=== PATIENT | male | born 1960 | race Caucasian/White ===

== ENCOUNTER 2019-11-01 13:27 | Outpatient (CLI) | payer OTHER, SELFPAY ==
--- NOTE | 2019-11-01 13:48 | ECG_ITS ---
Measurements Intervals [place] Rate: 80 P: 46 VA: 172 QRS: 23 QRSD: 94 T: 53 QT: 386 QTc: 447 Interpretive Statements SINUS RHYTHM NORMAL ECG Electronically Signed On 11-01-2019 14:38:43 LINER REROLL TENDER by Jose Lua D.O.
[2019-11-01 13:57] LABS: Blood Urea Nitrogen 14 mg/dL (9-20); Calcium 9.3 mg/dL (8.4-10.2); Carbon Dioxide 26 mmol/L (22-30); Chloride 99 mmol/L (98-107); Estimated Glomerular Filt Rate > 60; Glucose 101 mg/dL (75-110); Sodium 137 mmol/L (137-145)
== END 2019-11-01 13:28 | disposition home or self-care (01) ==
PROVIDERS: Visit Provider Orthopaedic Surgery
DX: Z01.818 Encounter for other preprocedural examination (principal)
CPT/HCPCS: 36415; 80048; 93005

== ENCOUNTER 2021-04-25 03:07 | Day surgery (SDC) | payer OTHER, SELFPAY ==
[2021-04-11 14:12] VITALS: BMI 32.3
[2021-04-25 07:49] VITALS: BP 149/85; PULSE 71; RESP 20; TEMP 36.4; O2SAT 99; BMI 30.9
[2021-04-25] MEDS: LACTATED RINGERS 1,000 ML 150 ML IV CONT (07:49)
--- NOTE | 2021-04-25 07:57 | PM.HPGS ---
History of Present Illness History of Present Illness Consent: Risks, benefits, and alternatives have been discussed and questions answered. Patient agrees to proceed with procedure. Chief complaint: neoplasm, hx of colon polyps Narrative: Nate Hendrickson is a 61 year old male Referred for colon cancer screening. He has had multiple polyps removed in the past Review of Systems Review of Systems: All systems reviewed & are unremarkable except as noted in HPI and below PMFSH Social History Social History Smoking status: Never smoker Alcohol intake: current Drinks per week: 21 Substance use type: does not use Living arrangements: with family Spiritual care concerns: No Meds Home Medications and Allergies Home Medications Medication Instructions Recorded Confirmed Type brimonidine-timolol [Combigan] 1 drp OPHTHALMIC (EYE) BID 04/11/21 04/11/21 History dorzolamide 1 drp RIGHT EYE BID 04/11/21 04/14/21 History lovastatin 20 mg PO DAILY 04/11/21 04/11/21 History amlodipine 10 mg PO DAILY 04/14/21 04/14/21 History lisinopril-hydrochlorothiazide 1 tablet PO DAILY 04/14/21 04/14/21 History prednisolone acetate [Pred Mild] 1 drp LEFT EYE DAILY 04/14/21 04/14/21 History Allergies Allergy/AdvReac Type Severity Reaction Status Date / Time povidone-iodine Allergy Mild Rash Verified 04/25/21 07:45 Vital Signs Vital Signs - 24 hr 04/25/21 07:49 Temperature 36.4 C Pulse Rate 71 Respiratory Rate 20 Blood Pressure 149/85 H Pulse Oximetry 99 Exam Resp: Auscultation: clear to auscultation bilaterally Cardio: Rate: regular rate Rhythm: regular rhythm GI: GI Palp: Yes Soft to palpation and No Tenderness to palpation present (GI) Assessment and Plan Assessment and plan (1) Colon cancer screening: Code(s): Z12.11 - Encounter for screening for malignant neoplasm of colon Status: Acute Assessment and Plan: Colonoscopy with possible biopsy or polypectomy or cautery or injection of substances.
--- NOTE | 2021-04-25 08:02 | WPDANESEPPF ---
Anes - Initial Pre Proc Eval Procedure: Operation Date: 04/25/21 08:30 Proposed Procedures p Screening Colonoscopy - Alfa Dumont MD Date/Time: 04/25/21 08:02 Surgeon: Alfa Dumont MD Pre Op Diagnosis: neoplasm, hx of colon polyps Patient Data Age: 61 Gender: M Height: 1.8 m Weight: 100.6 kg Last Vital Signs Temp 36.4 C 04/25/21 07:49 Pulse 71 04/25/21 07:49 Resp 20 04/25/21 07:49 BP 149/85 H 04/25/21 07:49 Pulse Ox 99 04/25/21 07:49 Allergies Allergy/AdvReac Type Severity Reaction Status Date / Time povidone-iodine Allergy Mild Rash Verified 04/25/21 07:45 Home Medications Medication Instructions Recorded Confirmed Type brimonidine-timolol [Combigan] 1 drp OPHTHALMIC (EYE) BID 04/11/21 04/11/21 History dorzolamide 1 drp RIGHT EYE BID 04/11/21 04/14/21 History lovastatin 20 mg PO DAILY 04/11/21 04/11/21 History amlodipine 10 mg PO DAILY 04/14/21 04/14/21 History lisinopril-hydrochlorothiazide 1 tablet PO DAILY 04/14/21 04/14/21 History prednisolone acetate [Pred Mild] 1 drp LEFT EYE DAILY 04/14/21 04/14/21 History Patient hx anesthesia problems: none Family hx anesthesia problems: [facility] Past Medical History Medical History (Updated 04/25/21 @ 08:03 by Alex Phillip MD) Glaucoma HTN (hypertension) Hyperlipidemia Obesity Social History Social History Smoking status: Never smoker Alcohol intake: current Drinks per week: 21 Substance use type: does not use Living arrangements: with family Spiritual care concerns: No Anes - Eval Final PreProcedure Day of Procedure 04/25/21 08:02 Patient weight: obese Heart: regular rate and rhythm Lungs: clear to auscultation and normal air movement Airway: Mallampati scale class II Neurological: alert and oriented Last oral intake: >/= 8 hours ASA classification: III Emergent: no Anesthetic plan: proceed Anesthesia type and monitoring: general GIVS Informed Consent: The patient's anesthetic plan and its attendant risks and benefits were discussed with the patient/family/POA. Questions were solicited and answers provided to the satisfaction of the patient/family/POA.
[2021-04-25] MEDS: SIMETHICONE ORAL SUSPENSION 20 MG/0.3 ML 30 ML BOTTLE 0.6 ML IRRIGATION (08:42)
[2021-04-25 08:50] VITALS: BP 105/71; PULSE 67; RESP 14; O2SAT 97
[2021-04-25 09:00] VITALS: BP 107/85; PULSE 63; RESP 16; O2SAT 99
[2021-04-25 09:10] VITALS: BP 121/75; PULSE 60; RESP 14; O2SAT 100
== END 2021-04-25 09:42 | disposition home or self-care (01) ==
PROVIDERS: Visit Provider Internal Medicine Gastroenterology
PROC: 0DJD8ZZ Inspection of Lower Intestinal Tract, Via Natural or Artificial Opening Endoscopic (ICD-10-PCS; CPT 45378; principal; 2021-04-25 08:30)
DX: Z12.11 Encounter for screening for malignant neoplasm of colon (principal); K62.1 Rectal polyp; D12.0 Benign neoplasm of cecum; D12.4 Benign neoplasm of descending colon; D12.2 Benign neoplasm of ascending colon
CPT/HCPCS: 45385; 45384; 45380; 88305; J2001; J2704; J7120

== ENCOUNTER 2024-11-02 07:00 | Outpatient (NON) | payer OTHER, SELFPAY ==
--- OUTSIDE RECORDS SUMMARY | 2024-11-03 11:40 | XMS_ITS | Continuity of Care Document ---
Author Organization [facility] Address [address] [place] [address] Phone Care Team Providers Care Party Supply Specialist Name Role Phone Larrymilaemiliano Ronald Unavailable Unavailable Procedures Procedure Date Office/outpatient Visit, Est Office/outpatient Visit, Est Office/outpatient Visit, Est Eye Exam Established Pt Visual Field Examination(s) Office/outpatient Visit, Est Office/outpatient Visit, Est Office/outpatient Visit, Est Eye Exam Established Pt Visual Field Examination(s) Optic Nerve Topography Optic Nerve Topography Office/outpatient Visit, Est Fundus Photography W/ Report Office/outpatient Visit, Est Visual Field Examination(s) Optic Nerve Topography Optic Nerve Topography Office/outpatient Visit, Est Office/outpatient Visit, Est Office/outpatient Visit, Est Office/outpatient Visit, Est Office/outpatient Visit, Est Advance Directives Directive Yes / No Effective Date File Name No Information Encounters Encounter Description Practice Location Reason(s) For Visit Diagnoses Date Provider Providers Copied on Encounter Office/outpat ient Visit, [facility], [address], [place], [place], [id number], [place] tel:[phone] [facility] [place] No Information Apr- 0-201 0 Krishnasamy Ronald. [facility], [place], [place], [facility], [place]. tel:[phone] Office/outpat ient Visit, [facility], [address] [place] [address] [address], [place], [place], [id number], [place] tel:[phone] [facility] [place] No Information 4-201 0 Krishnasamy Ronald. [address] [place] [address], [place], [facility], [place]. tel:[phone] Office[facility]pat ient [facility], [facility], [address] [place] [address] [address], [place], [place], [id number], [place] tel:[phone] [facility] [place] No Information 1 7-201 0 Krishnasamy Ronald. [address] [place], [place] [address]ate [facility] [address], [place], [facility], [place]. tel:[phone] [facility], [address] [place] [address] [address], [place], [place], [id number], [place] tel:[phone] [facility] [place] No Information 0-201 0 Krishnasamy Ronald. [address] [place], [place] [address] [facility] [address], [place], [place], [facility], [place]. tel:[phone] [facility], [address] [place] [address] [address], [place], [place], [id number], [place] tel:[phone] [facility] [place] No Information 3-201 0 Krishnasamy Ronald. [address] [place], [place] [address] [facility], [place], [place], [facility], [place]. tel:[phone] Referring Provider: Ronald stovall, [address] [place], [place] [address] [facility], [place], [address]. tel:[phone] Office/outpat ient Visit, [facility], [address], [place], [place], [id number], [place] tel:[phone] [facility] [place] No Information 1200 9 Krishnasamy Ronald. [address] [place] [address], [place], [facility], [place]. tel:[phone] Office/outpat ient Visit, [facility], [address] [place] [address] [address], [place], [place], [id number], [place] tel:[phone] [facility] [place] No Information 1200 9 Krishnasamy Ronald. [address] [place] [address], [place], [facility], [place]. tel:[phone] Office/outpat ient Visit, [facility], [address] [place] [address] [address], [place], [place], [id number], [place] tel:[phone] [facility] No Information 2 8200 9 Krishnasamy Ronald. [address] [place] [address], [facility], [place]. tel:[phone] [facility] [address] [facility], [address] [place] [address] [address], [place], [place], [id number], [place] tel:[phone] [facility] [place] No Information 4-200 9 Krishnasamy Ronald. [address] [place] [address], [facility], [place]. tel:[phone] Referring Provider: Ronald stovall, [address] [place], [place] [address]ate [facility] [address], [place], [address]. tel:[phone] [facility], [address], [place], [place], [id number], [place] tel:[phone] [facility] No Information Apr-1 0-200 9 Danni Cardenas. [address] [place], [place] [address] [place] [address], [place], [facility], . tel:[phone] Referring Provider: Ronald Kadeem stovall, [facility] [address], [place], [place], [facility]. tel:[phone] [facility], [address] [place] [address] [address], [place], [place], [id number], [place] tel:[phone] [facility] [place] No Information Oct-2 0-200 9 Mcarthur OD Juan Daniel. [address] [place] [address] , [address], [place], [place], [facility], [place]. tel:[phone] Referring Provider: Juan Daniel Mcarthur OD A, [address] [place], [place] [address] [place] [address], [place], [place], [facility]. tel:[phone] Office/outpat ient Visit, [facility], [address] [place] [address] [address], [place], [place], [id number], [place] tel:[phone] [facility] [place] No Information Oct-0 7-200 8 Mcarthur OD Juan Daniel. [address] [place] [address] Center , [address], [place], [facility], [place]. tel:[phone] Referring Provider: Juan Daniel Mcarthur OD A, [address] [place], [place] [address]ate Center [address], [place], [facility]. tel:[phone] Office/outpat ient Visit, [facility], [address] [place] [address] [address], [place], [place], [id number], [place] tel:[phone] [facility] [place] No Information Apr-1 6-200 8 Mcarthur OD Juan Daniel. [address] [place] [address] , [address], [place], [facility], [place]. tel:[phone] [facility], [address] [place] [address] [address], [place], [place], [id number], [place] tel:[phone] [facility] No Information Dec-1 3-200 7 Mcarthur OD Juan Daniel. [address] [place], [place] [address] Center , [address], [place], [facility], . tel:[phone] Referring Provider: Juan Daniel Mcarthur OD A, [address] [place], [place] [address]ate Center [address], [place], [place], [facility]. tel:[phone] [facility], [address] [place] [address] [address], [place], [place], [id number], [place] tel:[phone] [facility] No Information Dec-0 7-200 7 Mcarthur OD Juan Daniel. [address] [place] [address] Center , [address], [place], [facility], [place]. tel:[phone] Referring Provider: Juan Daniel Mcarthur OD A, [address] [place], [place] [address]ate Center [address], [place], [facility]. tel:[phone] Office/outpat ient Visit, [facility], [address] [place] [address] [address], [place], [place], [id number], [place] tel:[phone] [facility] No Information Nov-1 0-200 7 Mcarthur OD Juan Daniel. [address] [place], [place] [address] Center , [address], [place], [facility], [place]. tel:[phone] Office/outpat ient Visit, [facility], [address] [place] [address] [address], [place], [place], [id number], [place] tel:[phone] [facility] [place] No Information Oct-3 1-200 7 Mcarthur OD Juan Daniel. [address] [place], [place] [address] Center , [address], [place], [facility], [place]. tel:[phone] Office/outpat ient Visit, [facility], [address] [place] [address] [address], [place], [place], [id number], [place] tel:[phone] [facility] No Information 3-200 7 Mcarthur OD Juan Daniel. [address] [facility] , [address], [place], [address], [place]. tel:[phone] Office/outpat ient Visit, [facility], [address] [facility] [address], [place], [place], [id number], [place] tel:[phone] [facility] No Information 1200 7 Mcarthur OD Juan Daniel. [address] [facility] , [address], [place], [address], [place]. tel:[phone] Office/outpat ient Visit, [facility], [address], [place], [place], [id number], [place] tel:[phone] [facility] No Information 7200 7 Mcarthur OD Juan Daniel. [address] [facility] , [address], [place], [address], [place]. tel:[phone] Family History Family Member Type Diagnosis Age At Onset No Information Payers Payer name Insurance type Covered republican ID Matt toth(s) [facility] 09 [id number] Social History Type Description Quantity Date Captured Comments Sex Male Smoking Status No Information Chief Complaint And Reason For Visit No Information Reason For Referral Reason For Referral No Information History Of Present Illness Encounter Date Complaint History Of Prese nt Illness No Information Functional Status Date Functional Assessmen t No Information Instructions Date Instruction Additional Infor mation No Information Assessments Type Assessment Date No Information Patient Care Teams Name Effective Dates (start - stop) Status Members No Information
--- OUTSIDE RECORDS SUMMARY | 2024-11-03 11:40 | XMS_ITS ---
Author Organization Unknown Medications Medication Instructions Effective Dates (start - stop) Status hydrochlorothiazide 12.5 MG / losartan potassium 50 MG Oral Tablet - Completed hydrochlorothiazide 12.5 MG / lisinopril 10 MG Oral Tablet - Complete d hydrochlorothiazide 12.5 MG / losartan potassium 50 MG Oral Tablet - Completed rosuvastatin calcium 20 MG O ral Tablet - Completed amlodipine 10 MG Oral Tablet [id number] 0:00:00Z - Completed amlodipine 10 MG Oral Tablet [id number] 0:00:00Z - Completed rosuvastatin calcium 20 MG O ral Tablet - Completed rosuvastatin calcium 20 MG O ral Tablet - Completed hydrochlorothiazide 12.5 MG / lisinopril 10 MG Oral Tablet - Complete d hydrochlorothiazide 12.5 MG / losartan potassium 50 MG Oral Tablet - Completed rosuvastatin calcium 20 MG O ral Tablet - Completed dorzolamide 20 MG/ML Ophthal jo Solution - Completed hydrochlorothiazide 12.5 MG / losartan potassium 50 MG Oral Tablet - Completed amlodipine 10 MG Oral Tablet [id number] 0:00:00Z - Completed benzonatate 200 MG Oral Capsule 2023-08-22 0T00:00:00Z - Completed Patient Care team information Name Category Status Period Participants - - Proposed period not known -
--- OUTSIDE RECORDS SUMMARY | 2024-11-03 11:40 | XMS_ITS | Clinical Summary ---
Author Organization [facility] Address [address] [place] [address] Care Team Providers Care Cotton Roll Packer Name Role Phone Darek Olivia MD Primary Care Provider [phone] Allergies Active Allergy Reactions Criticality Noted Date Comments Povidone Iodine Rash Low 07/14/2023 Medications Multiple Vitamin (MULTIVITAMIN ADULT OR) Take 1 tablet by mouth daily. Active dorzolamide (TRUSOPT) 2 % ophthalmic solution Place 1 drop into the right eye 2 (two) times a day. Active brimonidine-jaki lol (COMBIGAN) 0.2-0.5 % ophthalmic solution Place 1 drop into the right eye 2 (two) times a day. Active amLODIPine (NORVASC) 10 MG tablet Take 1 tablet (10 mg total) by mouth daily. Active lisinopril-hydro CHLOROthiazide (ZESTORETIC) 10-12.5 MG tablet Take 1 tablet by mouth daily. Active rosuvastatin (CRESTOR) 20 MG tablet Take 1 tablet (20 mg total) by mouth daily. Active Active Problems No known active problems Immunizations Name Administration Dates Next Due Influenza Adult (Generic) 07/07/2023,07/29/2022, 06/24/2021 PFIZER COVID-19 (TINEO CAP), MRNA, LNP-S, PF, 30 MCG/0.3 ML YEHUDA-SUCROSE, IM 02/09/2022 PFIZER COVID-19 (ORIGINAL FO RMULATION, PURPLE CAP) mRNA, LNP-S, PF, 30 MCG/0.3 ML DOSE 08/11/2021,12/07/2020,11/16/2020 PFIZER COVID-19 BIVALENT (12 +) mRNA, LNP-S, PF, 30 MCG/0.3 ML DOSE 07/29/2022 Social History Tobacco Use Types Packs/Day Years Used Date Smoking Tobacco: Never Smokeless Tobacco: Never Tobacco Cessation:Counseling Given: Not Answered Alcohol Use Standard Drinks/Week Comments Yes 8.3 (1 standard drink = 0.6 oz p ure alcohol) 5-12 drinks/week on average Sex and Gender Information Value Date Recorded Sex Assigned at Not on file Legal Sex Male 8:10 AM CDT Gender Identity Not on file Sexual Orientation Not on file Last Filed Vital Signs Vital Sign Reading Time Taken Comments Blood Pressure 156/90 07/22/2023 3:24 PM CDT Pulse 77 07/22/2023 3:24 PM CDT Temperature 36.3 C (97.3 F) 07/22/2023 3:24 PM CDT Respiratory Rate 16 07/22/2023 3:24 PM CDT Oxygen Saturation 98% 07/22/2023 3:24 PM CDT Inhaled Oxygen Concentration - - Weight 103.9 kg (229 lb 0.9 oz) 023 10:00 AM CDT Height 180.3 cm (5' 11 ) 07/22/2023 10: 00 AM CDT Body Mass Index 31.95 07/22/2023 10:00 AM CDT Plan of Treatment Health Maintenance Due Date Last Done Comments Colorectal Cancer Screening Colonoscopy (10 Years) 1962 Annual Physical 1965 Hepatitis C 1980 DTaP, Tdap and Td Vaccines (1 - Tdap) 1981 Zoster Vaccines (1 of 2) 2012 COVID-19 Vaccine ( season) 2024 07/29/2022, 02/09/2022, 08/11/2021, Additional history exists Influenza Adult (#1) 2024 07/07/2023, 07/29/2022, 06/24/2021 RSV Immunization or 60+ Years (1 - 1-dose 75+ series) 2037 Meningococcal B Vaccine Aged Out No l onger eligible based on patient's age to complete this topic Meningococcal Vaccine Aged Out No anika lito eligible based on patient's age to complete this topic Pneumococcal Vaccine: Pediatrics (0 to 5 Years) and At-Risk Patients (6 to 64 Years) Aged Out No longer eligible based on patient's age to complete this topic RSV Immunizations Under 20 Months Aged Out No longer eligible based on patient's age to complete this topic Insurance [employer] Member Subscriber Plan / Payer (Ef fective 2022-Present) Name:Nate Hendrickson Relation to Subscriber:Self Name:Nate Hendrickson Payer ID:Not on file Group ID:Not on file Type:Not on file Address: [facility] [id number] [place] [id number] Care Teams Cotton Roll Packer Relationship Specialty Start Date End Date Darek Olivia MD PCP - General INTERNAL MEDICINE 07/14/23
== END 2024-11-02 07:01 | disposition home or self-care (01) ==
LOC: ANHLAB 11-03 11:29
PROVIDERS: Visit Provider Plastic Surgery
DX: D03.4 Melanoma in situ of scalp and neck (principal)
CPT/HCPCS: 88305; 88342

== ENCOUNTER 2025-04-19 03:34 | Emergency (ER) | payer OTHER, SELFPAY ==
--- NOTE | ~2025-04-19 | XR_ITS ---
HISTORY: Knee pain COMPARISON: None TECHNIQUE: 3 views of the right knee were performed FINDINGS: No acute or subacute fracture. Medial tibiofemoral joint space narrowing is identified. Small suprapatellar joint effusion is identified. The infrapatellar joint space is clear. Ossification of the insertion of the quadriceps tendon is present. Ossification of the insertion of the tibial patellar tendon. IMPRESSION: Degenerative disease without acute fracture. Reviewed, dictated and finalized at location A.
--- OUTSIDE RECORDS SUMMARY | 2025-04-19 03:36 | XMS_ITS | Referral Summary ---
Author Organization [facility] Address [address] [place] [address] Care Team Providers Care Joint Supervisor Name Role Phone Darek Olivia MD Primary Care Provider Encounters Date Type Department Care Team Description 04/14/2025 6:43 AM CDT - 04/14/2025 11:59 PM CDT Hospital Encounter [facility] [address] [place] [address] Malignant neoplasm of prostate (HCC) Discharge Disposition: Discharge to home or self care 03/27/2025 Orders Only [facility] Health Information Management [address] [place] [address] Scanning, Provider from Last 3 Months Allergies No known active allergies Social History Tobacco Use Types Packs/Day Years Used Date Smoking Tobacco: Never Assessed Sex and Gender Information Value Date Recorded Sex Assigned at Not on file Legal Sex Male 1:07 AM CDT Gender Identity Not on file Sexual Orientation Not on file Last Filed Vital Signs Vital Sign Reading Time Taken Comments Blood Pressure - - Pulse - - Temperature - - Respiratory Rate - - Oxygen Saturation - - Inhaled Oxygen Concentration - - Weight 104.3 kg (230 lb) 05/22/2023 7:35 AM CDT Height 180.3 cm (5' 11) 05/22/2023 7:35 AM CDT Body Mass Index 32.08 05/22/2023 7:35 AM CDT Plan of Treatment Not on file Procedures Procedure Name Priority Date/Time Associated Diagnosis Comments MRI PELVIS PROSTATE W WO CONTRAST Schedule Routine, Read Routine (OP Routine) 04/14/2025 8:03 AM CDT Malignant neoplasm of prostate (HCC) SCAN - OTHER ORDERS 03/27/2025 from Last 3 Months Results * MRI Pelvis Prostate W WO Contrast (04/14/2025 8:03 AM CDT) Anatomical Region Laterality Modality Body N/A Magnetic Resonan ce 04/16/2025 8:50 AM CDT Impressions 04/17/2025 1:23 PM CDT A lesion in the left lateral peripheral zone at the apex corresponding with biopsy-proven [place] 3+3 prostate adenocarcinoma is not significantly changed in size from prior examination. Dictated by: Davidson Du MD The radiology attending physician has personally reviewed this study, and had reviewed and/or edited this written report and agrees with it. Electronically signed by: Alvin Meraz M.D. Narrative 04/17/2025 1:23 PM CDT EXAMINATION: MAGNETIC RESONANCE IMAGING OF THE PELVIS WITHOUT AND WITH CONTRAST HISTORY: [place] 3+3 prostate adenocarcinoma diagnosed 07/22/23, follow-up TECHNIQUE: MR imaging of the prostate gland was performed with a torso phased array coil to and following administration of intravenous contrast. Protocol: Prostate 3T Contrast: Dotarem (gadoterate) 20 mL COMPARISON: MRI 05/27/2024 FINDINGS: Prostate volume: 52 cc The prostate transition zone is enlarged with benign prostatic hyperplasia. The prostate was assessed using the PI-RADS version 2.1 scoring system. The following lesions are of at least intermediate suspicion (PI-RADS 3 or greater): Lesion 1: Side: left Location: lateral Zone: peripheral zone Craniocaudal: apex Trevino images: series 19, image 55 Size: 0.17 mL; largest axial dimensions 1.0 x 0.5 Extraprostatic extension: - tumor contact length with prostate margin: 3 mm - margin bulge/irregularity: no - rectoprostatic angle obliteration: no - neurovascular bundle asymmetry: no - gross extraprostatic extension: no - overall EPE grade: 0 (no suspicion for pathologic EPE) T2WI score: 4 DWI score: 4 DCE: positive Overall PI-RADS v2.1 assessment: 4 Unchanged from prior. Staging Information: No enlarged lymph nodes are identified. No suspicious osseous lesions are identified. Other findings: Small fat-containing left inguinal hernia. Procedure Note Alvin Meraz MD - 04/17/2025 EXAMINATION: MAGNETIC RESONANCE IMAGING OF THE PELVIS WITHOUT AND WITH CONTRAST HISTORY: [place] 3+3 prostate adenocarcinoma diagnosed 07/22/23, follow-up TECHNIQUE: MR imaging of the prostate gland was performed with a torso phased array coil to and following administration of intravenous contrast. Protocol: Prostate 3T Contrast: Dotarem (gadoterate) 20 mL COMPARISON: MRI 05/27/2024 FINDINGS: Prostate volume: 52 cc The prostate transition zone is enlarged with benign prostatic hyperplasia. The prostate was assessed using the PI-RADS version 2.1 scoring system. The following lesions are of at least intermediate suspicion (PI-RADS 3 or greater): Lesion 1: Side: left Location: lateral Zone: peripheral zone Craniocaudal: apex Rtevino images: series 19, image 55 Size: 0.17 mL; largest axial dimensions 1.0 x 0.5 Extraprostatic extension: - tumor contact length with prostate margin: 3 mm - margin bulge/irregularity: no - rectoprostatic angle obliteration: no - neurovascular bundle asymmetry: no - gross extraprostatic extension: no - overall EPE grade: 0 (no suspicion for pathologic EPE) T2WI score: 4 DWI score: 4 DCE: positive Overall PI-RADS v2.1 assessment: 4 Unchanged from prior. Staging Information: No enlarged lymph nodes are identified. No suspicious osseous lesions are identified. Other findings: Small fat-containing left inguinal hernia. IMPRESSION: A lesion in the left lateral peripheral zone at the apex corresponding with biopsy-proven [place] 3+3 prostate adenocarcinoma is not significantly changed in size from prior examination. Dictated by: Davidson Du MD The radiology attending physician has personally reviewed this study, and had reviewed and/or edited this written report and agrees with it. Electronically signed by: Alvin Meraz M.D. Shravan Harris MD IMG MRI PROCEDURES Final Resul t * SCAN - OTHER ORDERS (03/27/2025) us Provider Scanning Edited Result - Final from Last 3 Months Insurance [facility] [id number] [facility] [id number] Care Teams Joint Supervisor Relationship Specialty Start Date End Date Darek Olivia MD PCP - General Internal Medicine 04/30/22
--- OUTSIDE RECORDS SUMMARY | 2025-04-19 03:36 | XMS_ITS | Clinical Summary ---
Author Organization [facility] Address [address] [place] [address] Care Team Providers Care Reactor Fueling Supervisor Name Role Phone Darek Olivia MD Primary Care Provider Allergies No known active allergies Encounters Date Type Department Care Team Description 04/14/2025 6:43 AM CDT - 04/14/2025 11:59 PM CDT Hospital Encounter [facility] [address] [place] [address] Malignant neoplasm of prostate (HCC) Discharge Disposition: Discharge to home or self care 03/27/2025 Orders Only [facility] Health Information Management [address] [place] [address] Scanning, Provider from Last 3 Months Social History Tobacco Use Types Packs/Day Years [...] 05/22/2023 7:35 AM CDT Plan of Treatment Health Maintenance Due Date Last Done Comments Colon Cancer Screening-Colonoscopy 1962 Depression Screening 1962 Hepatitis C Screening 1962 Prostate Cancer Screening-PSA 1962 DTaP/Tdap/Td Vaccine (1 - Tdap) 1973 Hepatitis B Screening 1980 Regular Well Visit/Exam 18-64 1980 Zoster Vaccine (1 of 2) 2012 Covid-19 Vaccine (5 - season) 2024 02/09/2022, 08/11/2021, 12/07/2020, Additional history exists Influenza Vaccine (#1) 2025 3, 07/29/2022, 06/24/2021, Additional history exists Pneumococcal vaccine <65 Aged Out No longer eligible based on patient's age to complete this topic Procedures Procedure Name Priority Date/Time Associated Diagnosis [...] zone at the apex corresponding with biopsy-proven [place] 3+3 prostate adenocarcinoma is not significantly changed in size from prior examination. Dictated by: Davidson Du MD The radiology attending physician has personally reviewed this study, and had reviewed and/or edited this written report and agrees with it. Electronically signed by: Alvin Meraz M.D. Shravan Harris MD IMG MRI PROCEDURES Final Resul t * SCAN - OTHER ORDERS (03/27/2025) Provider Scanning Edited Result - Final from Last 3 Months Insurance [facility] [id number] [facility] [id number] Care Teams Reactor Fueling Supervisor Relationship Specialty Start Date End Date Darek Olivia MD PCP - General Internal Medicine 04/30/22
--- OUTSIDE RECORDS SUMMARY | 2025-04-19 03:36 | XMS_ITS | Clinical Summary ---
Author Organization [facility] Address [address] [place] [address] Care Team Providers Care Flame Cutting Supervisor Name Role Phone Darek Olivia MD Primary Care Provider [phone] Allergies Active Allergy Reactions Criticality Noted Date [...] Active Problems No known active problems Immunizations Immunization Administration Dates Next Due Influenza Adult (Generic) [...] 10:00 AM CDT Height 180.3 cm (5' 11) 07/22/2023 10: 00 AM CDT Body Mass Index 31.95 07/22/2023 10:00 AM CDT Plan of Treatment Health Maintenance Due Date Last Done Comments Colorectal Cancer Screening Colonoscopy (10 Years) 1962 Annual Physical 1965 Hepatitis C 1980 DTaP, Tdap and Td Vaccines (1 - Tdap) 1981 Pneumococcal Vaccine: 50+ Years (1 of 1 - PCV) 2012 Zoster Vaccines (1 of 2) 2012 COVID-19 Vaccine ( season) 2024 07/29/2022, 02/09/2022, 08/11/2021, Additional history exists RSV Immunization or 60+ Years (1 - 1-dose 75+ series) 2037 Meningococcal B Vaccine Aged Out No l onger eligible based on patient's age to complete this topic Meningococcal Vaccine Aged Out No anika lito eligible based on patient's age to complete this topic RSV Immunizations Under 20 Months Aged Out No longer eligible based on patient's age to complete this topic Insurance [employer] Care Teams Flame Cutting Supervisor Relationship Specialty Start Date End Date Darek Olivia MD PCP - General INTERNAL MEDICINE 07/14/23
[2025-04-19 03:38] VITALS: BP 172/97; PULSE 85; RESP 18; TEMP 37.1; O2SAT 98
[2025-04-19] MEDS: oxyCODONE HCL (*CRX) 5 MG TAB IR PO (03:59)
[2025-04-19] MEDS: ACETAMINOPHEN 500 MG TABLET 1000 MG PO (04:00)
--- NOTE | 2025-04-19 04:08 | ED.GENADULT ---
HPI - General Adult General Chief complaint: Extremity Injury, Lower Stated complaint: knee pain Time Seen by Provider: 04/19/25 03:36 History of Present Illness HPI narrative: This is a 65-year-old male presenting for knee pain. Several days ago he was getting up from the sofa and felt a pop in his knee. He has been able ambulate but he has noticed increased swelling of his knee. No fevers. No redness warmth or rashes to the knee. He has been taking Motrin with minimal relief. No weakness to the leg Related Data Home Medications ?Medication ?Instructions ?Recorded ?Confirmed ?Last Taken ?Type brimonidine 0.2 %-timolol 0.5 % 1 drp ophthalmic (eye) BID 04/11/21 04/11/21 04/24/21 History eye drops (Combigan) dorzolamide 2 % eye drops 1 drp RIGHT EYE BID 04/11/21 04/14/21 04/24/21 History lovastatin 20 mg tablet 20 mg PO DAILY 04/11/21 04/11/21 04/24/21 History amlodipine 10 mg tablet 10 mg PO DAILY 04/14/21 04/14/21 04/24/21 History lisinopril 10 1 tablet PO DAILY 04/14/21 04/14/21 04/24/21 History mg-hydrochlorothiazide 12.5 mg tablet prednisolone acetate 0.12 % eye 1 drp LEFT EYE DAILY 04/14/21 04/14/21 04/24/21 History drops,suspension (Pred Mild) Allergies Allergy/AdvReac Type Severity Reaction Status Date / Time povidone-iodine Allergy Mild Rash Verified 04/19/25 03:43 [facility] Past Medical History Medical History Obesity Glaucoma Hyperlipidemia HTN (hypertension) Social History Social History Smoking status: Never smoker Alcohol intake: current Drinks per week: 21 Substance use type: does not use Living arrangements: with family Spiritual care concerns: No Exam Narrative: APPEARANCE: No apparent distress. Head: atraumatic. EYES: EOMI, NOSE: Atraumatic NECK: Trachea midline RESPIRATORY: No increased rate of breathing CARDIOVASCULAR: RRR, ABDOMINAL: Non-distended MUSCULOSKELETAl: Focal exam of the right knee shows moderate effusion. No warmth. Foot is neurovascularly intact. Patient is able to bear weight. NEURO: Alert. Moving 4/4 extremities SKIN:: Warm, dry. Normal color PSYCHIATRIC: Normal affect Course Vital Signs Vital signs: Vital Signs Temperature 98.7 F 04/19/25 03:38 Pulse Rate 85 04/19/25 03:38 Respiratory Rate 18 04/19/25 03:38 Blood Pressure 172/97 H 04/19/25 03:38 Pulse Oximetry 98 04/19/25 03:38 Oxygen Delivery Room Air 04/19/25 03:38 Temperature 98.7 F 04/19/25 03:38 Pulse Rate 85 04/19/25 03:38 Respiratory Rate 18 04/19/25 03:38 Blood Pressure 172/97 H 04/19/25 03:38 Pulse Oximetry 98 04/19/25 03:38 Oxygen Delivery Room Air 04/19/25 03:38 Medical Decision Making MDM Narrative Medical decision making narrative: -Course: 62-year-old male presenting with right knee pain. Preliminary read of the x-ray S arthritis no acute fractures. Patient's pain was treated. He will be discharged follow-up with orthopedic surgeon. Patient given return precautions. -DDX includes but is not limited to: Bony injury, arthritis, septic joint, internal derangement of the knee Vital Signs Vital Signs: Vital Signs Temperature 98.7 F 04/19/25 03:38 Pulse Rate 85 04/19/25 03:38 Respiratory Rate 18 04/19/25 03:38 Blood Pressure 172/97 H 04/19/25 03:38 Pulse Oximetry 98 04/19/25 03:38 Oxygen Delivery Room Air 04/19/25 03:38 Temperature 98.7 F 04/19/25 03:38 Pulse Rate 85 04/19/25 03:38 Respiratory Rate 18 04/19/25 03:38 Blood Pressure 172/97 H 04/19/25 03:38 Pulse Oximetry 98 04/19/25 03:38 Oxygen Delivery Room Air 04/19/25 03:38 Discharge Plan Discharge Clinical Impression: Acute knee pain Patient Disposition: Home Condition: Stable Instructions: Antibiotic Form, Knee Pain (ED) Additional Instructions: You were seen in the emergency department for knee pain. Please use Tylenol Robaxin as needed for pain. Please follow-up with the orthopedic surgeon listed below. If you develop any new or worsening symptoms such as fevers or unbearable pain please return to the ED for re-evaluation. Patient Language: Slovenian Prescriptions: New acetaminophen 500 mg tablet 1,000 mg PO TID PRN (Reason: tarik) 7 Days Qty: 42 0RF methocarbamol 750 mg tablet 1,500 mg PO TID Qty: 42 0RF No Action lovastatin 20 mg Tablet 20 mg PO DAILY dorzolamide 2 % drops 1 drp RIGHT EYE BID Combigan 0.2-0.5 % drops 1 drp ophthalmic (eye) BID Pred Mild 0.12 % drops,suspension 1 drp LEFT EYE DAILY amlodipine 10 mg Tablet 10 mg PO DAILY lisinopril-hydrochlorothiazide 10-12.5 mg Tablet 1 tablet PO DAILY Follow-up/Referrals: Bob Henderson MD [Physician] - 1 Week (Knee pain ) UNKNOWN,DOCTOR [Primary Care Provider] -
--- OUTSIDE RECORDS SUMMARY | 2025-04-19 04:20 | XMS_ITS | Clinical Summary ---
Author Organization [facility] Address [address] [place] [address] Care Team Providers Care Setter Juice Packaging Machines Name Role Phone Darek Olivia MD Primary Care Provider Allergies No known active allergies Encounters Date Type Department Care Team Description 04/14/2025 6:43 AM CDT - 04/14/2025 11:59 PM CDT Hospital Encounter [facility] [address] [place] [address] Malignant neoplasm of prostate (HCC) Discharge Disposition: Discharge to home or self care 03/27/2025 Orders Only [facility] Health Information Management [address] [place] [address] Scanning, Provider from Last 3 Months Social [...] Location: lateral Zone: peripheral zone Craniocaudal: apex Treivno images: series 19, image 55 Size: 0.17 [...] zone at the apex corresponding with biopsy-proven [place] 3+3 prostate adenocarcinoma is not significantly changed [...] - Final from Last 3 Months Insurance [facility] [id number] [facility] [id number] Care Teams Setter Juice Packaging Machines Relationship Specialty Start Date End Date Darek Olivia MD PCP - General Internal Medicine 04/30/22
--- OUTSIDE RECORDS SUMMARY | 2025-04-19 04:20 | XMS_ITS | Clinical Summary ---
Author Organization [facility] Address [address] [place] [address] Care Team Providers Care Slug Press Operator Name Role Phone Darek Olivia MD Primary Care Provider [phone] Allergies Active Allergy Reactions Criticality Noted Date [...] patient's age to complete this topic Insurance [employer] Care Teams Slug Press Operator Relationship Specialty Start Date End Date Darek Olivia MD PCP - General INTERNAL MEDICINE 07/14/23
--- OUTSIDE RECORDS SUMMARY | 2025-04-19 04:20 | XMS_ITS | Referral Summary ---
Author Organization [facility] Address [address] [place] [address] Care Team Providers Care Endoscope Technician Name Role Phone Darek Olivia MD Primary Care Provider Encounters Date Type Department Care Team Description 04/14/2025 6:43 AM CDT - 04/14/2025 11:59 PM CDT Hospital Encounter [facility] [address] [place] [address] Malignant neoplasm of prostate (HCC) Discharge Disposition: Discharge to home or self care 03/27/2025 Orders Only [facility] Health Information Management [address] [place] [address] Scanning, Provider from Last 3 Months Allergies [...] THE PELVIS WITHOUT AND WITH CONTRAST HISTORY: [place] 3+3 prostate adenocarcinoma diagnosed 07/22/23, follow-up TECHNIQUE: [...] zone at the apex corresponding with biopsy-proven [place] 3+3 prostate adenocarcinoma is not significantly changed [...] - Final from Last 3 Months Insurance [facility] [id number] [facility] [id number] Care Teams Endoscope Technician Relationship Specialty Start Date End Date Darek Olivia MD PCP - General Internal Medicine 04/30/22
== END 2025-04-19 04:28 | disposition home or self-care (01) ==
PROVIDERS: Emergency Provider Emergency Medicine
DX: M25.561 Pain in right knee (principal); I10 Essential (primary) hypertension; E78.5 Hyperlipidemia, unspecified; H40.9 Unspecified glaucoma; Z79.899 Other long term (current) drug therapy
CPT/HCPCS: 73562; 99283; A9270